=== PATIENT | male | born 1965 | race Caucasian/White ===

== ENCOUNTER → 2023-09-25 08:08 | Outpatient (CLI) | payer OTHER, SELFPAY ==
--- NOTE | 2023-09-25 08:13 | DI.RAD.S_ITS ---
PROCEDURE: XR LUMBAR SPINE 2-3V INDICATIONS: Other specified arthritis, unspecified site TECHNIQUE: 3 views of the lumbar spine were acquired. COMPARISON: None. FINDINGS: Bones: 5 [id number] vertebrae are present. There is normal bony alignment. Mild disc height loss with degenerative endplate changes and facet arthropathy, most pronounced within the lower lumbar spine. No vertebral body compression fractures. No suspicious bony lesions. Soft tissues: Overlying bowel gas pattern is normal. No suspicious soft tissue calcifications. IMPRESSION: Mild degenerative changes of the lumbar spine. Dictated by: Cruzito Castillo M.D. on 09/25/2023 at 9:50 Approved by: Cruzito Castillo M.D. on 09/25/2023 at 9:50
--- NOTE | 2023-09-25 08:13 | DI.RAD.S_ITS ---
PROCEDURE: XR THORACIC SPINE 2V INDICATIONS: Other specified arthritis, unspecified site TECHNIQUE: 2 views of the thoracic spine were acquired. COMPARISON: None. FINDINGS: Bones: No fractures or dislocations. No suspicious bony lesions. 12 pairs of ribs are noted, and appear intact where visualized. There is multilevel intervertebral disc height loss with degenerative endplate changes and marginal spurring. Soft tissues: No paravertebral stripe thickening. IMPRESSION: Mild multilevel degenerative changes of the thoracic spine. Dictated by: Cruzito Castillo M.D. on 09/25/2023 at 9:50 Approved by: Cruzito Csatillo M.D. on 09/25/2023 at 9:51
== END ==
LOC: RAD 08:12
PROVIDERS: Referring Provider Chiropractor; Visit Provider Chiropractor
DX: M47.816 Spondylosis without myelopathy or radiculopathy, lumbar region (principal); M47.814 Spondylosis without myelopathy or radiculopathy, thoracic region
CPT/HCPCS: 72070; 72100